=== PATIENT | male | born 1960 | race Caucasian/White ===

== ENCOUNTER 2020-09-14 00:29 | Emergency (ER) | payer SELFPAY ==
[~2020-09-14] VITALS: Ht 170.2 cm; Wt 80.0 kg
[2020-09-14 00:33] VITALS: BP 148/62
== END 2020-09-14 02:22 | disposition home or self-care (01) ==
LOC: ER 00:29
DX: R04.0 Epistaxis (principal)
CPT/HCPCS: 99283

== ENCOUNTER 2022-02-08 21:31 | Emergency (ER) | payer SELFPAY ==
[~2022-02-08] VITALS: Ht 167.6 cm; Wt 79.6 kg
[2022-02-08 21:59] VITALS: BP 166/84
[2022-02-09] MEDS ORDERED: FLUORESCEIN SODIUM 1MG/STRIP LEFTEYE ONE (01:45)
[2022-02-09] MEDS ORDERED: TETRACAINE 0.5% OPHTH DROPS 4ML LEFTEYE ONE (01:45)
[2022-02-09] MEDS ORDERED: POLY10DR LEFTEYE (03:02)
[2022-02-09] MEDS ORDERED: IBUP-2029 MT (03:02)
== END 2022-02-09 03:40 | disposition home or self-care (01) ==
LOC: ER 21:31
DX: S05.02XA Injury of conjunctiva and corneal abrasion without foreign body, left eye, initial encounter (principal); X58.XXXA Exposure to other specified factors, initial encounter; Y93.89 Activity, other specified; Y92.9 Unspecified place or not applicable
CPT/HCPCS: 99283